=== PATIENT | male | born 1950 | race Caucasian/White ===

== ENCOUNTER 2019-05-09 11:05 | Inpatient (IN) | payer MEDICARE, OTHER ==
[~2019-05-09] VITALS: Ht 175.3 cm; Wt 98.0 kg
[2019-05-09] MEDS ORDERED: MIDAZOLAM 1 MG/ML, 5ML ONE (11:07)
[2019-05-09] MEDS ORDERED: VERAPAMIL 2.5 MG/ML, 2ML ONE (11:08)
[2019-05-09] MEDS ORDERED: TICAGRELOR 90 MG TABLET ONE (11:08)
[2019-05-09] MEDS ORDERED: HEPARIN 1,000 UNITS/ML, 10ML ONE (11:08)
[2019-05-09] MEDS ORDERED: FENTANYL PF 100 MCG/2ML ONE ×3 (11:08→12:53)
[2019-05-09] MEDS ORDERED: NITROGLYCERIN 5 MG/ML, 10ML ONE (11:08)
[2019-05-09] MEDS ORDERED: BIVALIRUDIN 250 MG ONE ×3 (11:08→12:41)
[2019-05-09] MEDS ORDERED: LIDOCAINE 2%, 20ML ONE (11:08)
[2019-05-09 11:19] LABS: BASOPHILS # (AUTO) 0.01 x10^3/uL (0-0.1); BASOPHILS % (AUTO) 0 % (0-1); EOSINOPHILS # (AUTO) 0.09 x10^3/uL (0-0.4); EOSINOPHILS % (AUTO) 1 % (1-7); LYMPHOCYTES # (AUTO) 1.06 x10^3/uL (1-3.4); LYMPHOCYTES % (AUTO) 15 % (22-44); MD NO; MEAN CORPUSCULAR HEMOGLOBIN 33.2 pg (27.5-34.5); MEAN CORPUSCULAR VOLUME 97.8 fL (81-97); MEAN PLATELET VOLUME 8.6 fL (7.4-10.4); MONOCYTES # (AUTO) 0.31 x10^3/uL (0.2-0.8); MONOCYTES % (AUTO) 5 % (2-9); NEUTROPHILS # (AUTO) 5.54 x10^3/uL (1.8-6.8); NEUTROPHILS % (AUTO) 79 % (42-75); PLATELET COUNT 133 x10^3/uL (130-400); RED BLOOD COUNT 4.62 x10^6/uL (4.38-5.82)
[2019-05-09 11:30] LABS: INTERNATIONAL NORMALIZED RATIO 1.02 (0.93-1.1); PROTHROMBIN TIME 10.7 Seconds (9.6-11.5)
[2019-05-09] MEDS ORDERED: ONDANSETRON 2MG/ML, 2ML IVPush PRN (11:30)
[2019-05-09] MEDS ORDERED: morphine SULFATE 10 MG/ML, 1ML IVPush PRN (11:30)
[2019-05-09] MEDS ORDERED: ACETAMINOPHEN 325 MG TABLET PO PRN (11:30)
[2019-05-09] MEDS ORDERED: NITROGLYCERIN 0.4 MG BOTTLE (25 TABS) SL PRN (11:30)
[2019-05-09] MEDS ORDERED: ZOLPIDEM 5MG TABLET PO PRN (11:30)
[2019-05-09] MEDS ORDERED: BISACODYL 5 MG EC TABLET PO PRN (11:30)
[2019-05-09] MEDS ORDERED: BISACODYL 10 MG SUPP PR PRN (11:30)
[2019-05-09] MEDS ORDERED: NITROGLYCERIN 0.4 MG/SPRAY SL PRN (11:30)
[2019-05-09] MEDS ORDERED: ASPIRIN 325 MG TABLET EC PO ONE (11:30)
[2019-05-09 11:34] LABS: TROPONIN I 0.676 ng/mL (0.000-0.045)
--- NOTE | 2019-05-09 11:34 | NUR ---
BIB [facility] TIME 1103 FROM [facility] FOR CATH PT A04 ON ARRIVAL DENIES CP AT THIS TIME HAS REC ALTEPLASE ASA NITRO AND FENT BASIN FINISH OPERATOR TIG WELDER MULTI IVS STARTED AT BL BASIN FINISH OPERATOR TIG WELDER DR YBARRA AT THE BS W ERP PT NOT REMOVED FROM [facility] AND WAS ASSESSED BY DR Andrews AFTER REPORT FROM [facility] AND 12 LEAD CLOTHING REMOVED AND TRANSLUCENT PADS PLACED DIRECTED TO TAKE PT TO TRUSS BUILDER BY DR YBRARA ON COMPLETION OF THE 12 LEAD WO COMPLETE VITAL COLLECTED IN ED PT VITALS NOTED WHERE ALL FROM [facility] REPORT PT TAKEN TO CATH W FLIGHT CREW DR [place]BAR[place] [address]
[2019-05-09] MEDS ORDERED: hydrALAzine 20 MG/ML, 1ML ONE (11:57)
[2019-05-09] MEDS ORDERED: ADENOSINE 6 MG/2 ML ONE (12:41)
[2019-05-09] MEDS ORDERED: MIDAZOLAM 1 MG/ML, 2ML ONE (12:53)
[2019-05-09] MEDS ORDERED: BIVALIRUDIN 250 MG in SODIUM CHLORIDE 0.9% 50 ML IV SCH (13:13)
[2019-05-09 14:00] VITALS: BP 134/84
[2019-05-09] MEDS: SODIUM CHLORIDE 0.9% 1,000 ML IV SCH ×2 (14:22→21:00)
[2019-05-09] MEDS: CARVEDILOL 6.25 MG TABLET PO SCH (18:04)
[2019-05-09] MEDS: ATORVASTATIN 80 MG TABLET PO SCH (21:00)
[2019-05-09] MEDS: TICAGRELOR 90 MG TABLET PO SCH (21:00)
[2019-05-10 04:15] VITALS: BP 116/58
[2019-05-10 04:45] LABS: ANION GAP 5 mmol/L (5-15); CALCIUM 8.1 mg/dL (8.5-10.1); CHLORIDE 110 mmol/L (98-107); CREATININE 0.87 mg/dL (0.7-1.3)
[2019-05-10] MEDS: ASPIRIN 81 MG TABLET EC PO SCH (06:27)
[2019-05-10] MEDS: CARVEDILOL 6.25 MG TABLET PO SCH ×2 (06:28→17:51)
[2019-05-10] MEDS ORDERED: POTASSIUM CHLORIDE 20 MEQ TAB.ER.PRT PO ONE (08:30)
[2019-05-10] MEDS ORDERED: MAGNESIUM SULFATE PMX 2GM/50ML 50 ML IV ONE (08:30)
[2019-05-10] MEDS ORDERED: ASPIRIN 81 MG TABLET EC PO SCH (09:00)
[2019-05-10] MEDS: TICAGRELOR 90 MG TABLET PO SCH ×2 (09:33→19:38)
[2019-05-10] MEDS: LISINOPRIL 5 MG TABLET PO SCH (09:33)
[2019-05-10 10:06] VITALS: BP 120/77
[2019-05-10 14:28] VITALS: BP 123/76
[2019-05-10] MEDS: ATORVASTATIN 80 MG TABLET PO SCH (19:38)
[2019-05-10 19:43] VITALS: BP 107/71
[2019-05-11 01:55] VITALS: BP 94/58
[2019-05-11] MEDS: CARVEDILOL 6.25 MG TABLET PO SCH (04:33)
[2019-05-11] MEDS: ASPIRIN 81 MG TABLET EC PO SCH (04:33)
[2019-05-11 05:09] LABS: ANION GAP 4 mmol/L (5-15); CALCIUM 8.2 mg/dL (8.5-10.1); CHLORIDE 112 mmol/L (98-107); CHOLESTEROL, TOTAL 159 mg/dL (140-239); CREATININE 0.98 mg/dL (0.7-1.3)
[2019-05-11 05:11] LABS: CHOL/HDL RATIO 3.6; HDL CHOL % 28 % (26-37); HDL CHOLESTEROL (DIRECT) 44 mg/dL (40-60); LDL CHOLESTEROL,CALCULATED 94 mg/dL (54-169); LDL/HDL RATIO 2.1 (0.5-3.0); TRIGLYCERIDES 106 mg/dL (50-200); VLDL CHOLESTEROL 21 mg/dL (0-25)
[2019-05-11 07:20] VITALS: BP 99/70
[2019-05-11] MEDS: LISINOPRIL 5 MG TABLET PO SCH (08:35)
[2019-05-11] MEDS: TICAGRELOR 90 MG TABLET PO SCH (08:36)
[2019-05-11 08:37] VITALS: BP 110/69
[2019-05-11] MEDS ORDERED: CARV3.1212 PO (09:44)
[2019-05-11] MEDS ORDERED: ASPI81TA45 PO (09:44)
[2019-05-11] MEDS ORDERED: LISI5TAB7 PO (09:44)
[2019-05-11] MEDS ORDERED: TICA90TA PO (09:44)
[2019-05-11] MEDS ORDERED: NITR0.4T28 SL (09:44)
[2019-05-11] MEDS ORDERED: ATOR-2 PO (09:44)
[2019-05-11] MEDS ORDERED: CARVEDILOL 3.125 MG TABLET PO SCH (18:00)
== END 2019-05-11 12:40 | disposition home or self-care (01) | DRG 246 ==
LOC: ED 11:22 → EDIP 12:16 → CSU 13:42 → 5SO 05-10 10:08 → DCLOUNGE 05-11 12:22
PROVIDERS: ADMIT Internal Medicine Cardiovascular Disease; ATTEND Internal Medicine Cardiovascular Disease
PROC: 027135Z Dilation of Coronary Artery, Two Arteries with Two Drug-eluting Intraluminal Devices, Percutaneous Approach (ICD-10-PCS; principal; 2019-05-09)
PROC: B2111ZZ Fluoroscopy of Multiple Coronary Arteries using Low Osmolar Contrast (ICD-10-PCS; 2019-05-09)
PROC: B2151ZZ Fluoroscopy of Left Heart using Low Osmolar Contrast (ICD-10-PCS; 2019-05-09)
PROC: 4A023N7 Measurement of Cardiac Sampling and Pressure, Left Heart, Percutaneous Approach (ICD-10-PCS; 2019-05-09)
PROC: 5A2204Z Restoration of Cardiac Rhythm, Single (ICD-10-PCS; 2019-05-09)
DX: I21.09 ST elevation (STEMI) myocardial infarction involving other coronary artery of anterior wall (principal); I50.31 Acute diastolic (congestive) heart failure; I49.01 Ventricular fibrillation; I97.790 Other intraoperative cardiac functional disturbances during cardiac surgery; I97.190 Other postprocedural cardiac functional disturbances following cardiac surgery; Y84.0 Cardiac catheterization as the cause of abnormal reaction of the patient, or of later complication, without mention of misadventure at the time of the procedure; Y71.1 Therapeutic (nonsurgical) and rehabilitative cardiovascular devices associated with adverse incidents; Y92.234 Operating room of hospital as the place of occurrence of the external cause; I49.3 Ventricular premature depolarization; Y92.239 Unspecified place in hospital as the place of occurrence of the external cause; E78.5 Hyperlipidemia, unspecified; I11.0 Hypertensive heart disease with heart failure; I25.10 Atherosclerotic heart disease of native coronary artery without angina pectoris; I25.2 Old myocardial infarction; I25.82 Chronic total occlusion of coronary artery; Z87.891 Personal history of nicotine dependence
CPT/HCPCS: 36415; 71045; 80047; 80048; 80061; 83735; 84484; 85025; 85610; 85730; 87081; 93005; 93306; 93458; 99156; 99157; C1760; C1769; C1894; G0378; J0153; J0583; J1644; J2250; J3010; C1725; C1874; C1887; J0360; J3475; J7030; Q9967